=== PATIENT | male | born 1970 | race Caucasian/White ===

== ENCOUNTER 2023-11-01 17:51 | Emergency (ER) | payer BC ==
[2023-11-01] MEDS: Albuterol/Ipratropium 3.0-0.5 MG/3 ML Neb Soln NEB ONE (18:11)
[2023-11-01] MEDS: predniSONE 20 MG Tab PO ONE (19:07)
== END 2023-11-01 19:19 | disposition home or self-care (01) ==
LOC: DL.ED 17:51
DX: R06.2 Wheezing (principal); I10 Essential (primary) hypertension; Z88.0 Allergy status to penicillin; Z79.82 Long term (current) use of aspirin; Z79.899 Other long term (current) drug therapy
CPT/HCPCS: 99284; J7512; J7620-GY